=== PATIENT | male | born 1950 | race Caucasian/White ===

== ENCOUNTER 2018-01-06 19:32 | Emergency (ER) | payer BC, MEDICARE ==
--- NOTE | 2018-01-06 20:30 | ER Document Report ---
ED Medical Screen (RME) - General Chief Complaint: Probable Seizure Stated Complaint: FALL/HEAD INJURY Time Seen by Provider: 01/06/18 20:21 Mode of Arrival: Ambulatory Information source: Patient, Relative Notes: 67-year-old male with a history of hypertension, coronary artery disease presents after seizure-like activity just prior to arrival. Patient states that 3 days prior to arrival he had a syncopal episode while pumping gas. He states that he fell and the next thing he knew he was picking himself off the floor. At that time he sustained a head injury, facial abrasions but was not evaluated. Patient was out to dinner with his today when suddenly he slumped over his food and began displaying abnormal movements that lasted approximately 2 minutes. states that the patient was confused afterwards. He does not have a history of seizures. Patient does describe paresthesias prior to both events. He denies any chest pain, shortness of breath, diaphoresis. Patient does have history of cardiac stents with last placement in 2017. He is not on any blood thinning medications but takes aspirin daily. Have greeted and performed a rapid initial assessment of this patient a comprehensive ED assessment and evaluation of the patient, analysis of test results and completion of medical decision making will be conducted by an additional ED provider. HEENT: Large abrasion to the left side of his forehead. Periorbital ecchymosis. - HPI Onset: Just prior to arrival Onset/Duration: Sudden Exacerbated by: Denies Relieved by: Denies Similar symptoms previously: No Recently seen / treated by doctor: No - Related Data Smoking: Non-smoker Frequency of alcohol use: Occasional Drug Abuse: None Allergies/Adverse Reactions: cefaclor [From Ceclor] Allergy (Severe, Verified 01/06/18 20:28) Swelling of Throat
[2018-01-06 21:17] LABS: ABSOLUTE BASOPHILS # (AUTO) 0.1 10^3/uL (0.0-0.2); ABSOLUTE EOSINOPHILS # (AUTO) 0.8 10^3/uL (0.0-0.6); ABSOLUTE LYMPHOCYTES (AUTO) 2.2 10^3/uL (0.5-4.7); ABSOLUTE MONOCYTES (AUTO) 0.8 10^3/uL (0.1-1.4); ABSOLUTE NEUT (AUTO) 5.8 10^3/uL (1.7-8.2); BASOPHILS % (AUTO) 0.6 % (0-2); EOSINOPHILS % (AUTO) 8.2 % (0-6); HEMATOCRIT 41.4 % (37.9-51.0); HEMOGLOBIN 14.1 g/dL (13.5-17.0); LYMPHOCYTES % (AUTO) 22.8 % (13-45); MEAN CORPUSCULAR HEMOGLOBIN 32.4 pg (27.0-33.4); MEAN CORPUSCULAR VOLUME 95 fl (80-97); PLATELET COUNT 293 10^3/uL (150-450); RED BLOOD COUNT 4.34 10^6/uL (4.35-5.55); SEGMENTED NEUTROPHILS % (AUTO) 60.4 % (42-78); TOTAL CELLS COUNTED % (AUTO) 100 %; WHITE BLOOD COUNT 9.7 10^3/uL (4.0-10.5)
[2018-01-06 21:24] LABS: APPEARANCE,URINE CLEAR; BILIRUBIN,URINE NEGATIVE (NEGATIVE); COLOR,URINE STRAW; GLUCOSE, URINE NEGATIVE (NEGATIVE); KETONES,URINE NEGATIVE (NEGATIVE); LEUKOCYTE ESTERASE,URINE NEGATIVE (NEGATIVE); NITRITE,URINE NEGATIVE (NEGATIVE); PROTEIN,URINE NEGATIVE (NEGATIVE); URINE SPECIFIC GRAVITY 1.008; UROBILINOGEN,URINE NEGATIVE mg/dL (<2.0)
[2018-01-06 21:34] LABS: ALANINE AMINOTRANSFERASE 38 U/L (21-72); ALCOHOL 32 mg/dL (NONE DETECTED); ALKALINE PHOSPHATASE 82 U/L (38-126); ANION GAP 13 (5-19); ASPARTATE AMINO TRANSFERASE 26 U/L (17-59); BILIRUBIN,DIRECT 0.4 mg/dL (0.0-0.4); BILIRUBIN,TOTAL 0.4 mg/dL (0.2-1.3); BLOOD UREA NITROGEN 14 mg/dL (7-20); CALCIUM 10.1 mg/dL (8.4-10.2); CARBON DIOXIDE 18 mmol/L (22-30); CHLORIDE 110 mmol/L (98-107); CREATINE KINASE 218 U/L (55-170); GLUCOSE 86 mg/dL (75-110); POTASSIUM 4.4 mmol/L (3.6-5.0); SODIUM 141.1 mmol/L (137-145); TOTAL PROTEIN 6.2 g/dL (6.3-8.2)
[2018-01-06 21:43] LABS: URINE AMPHETAMINES SCREEN NEGATIVE; URINE BARBITURATES SCREEN NEGATIVE; URINE BENZODIAZEPINES SCREEN NEGATIVE; URINE COCAINE SCREEN NEGATIVE; URINE MARIJUANA (THC) SCREEN UNCONFIRMED POSITIVE; URINE METHADONE SCREEN NEGATIVE; URINE PHENCYCLIDINE SCREEN NEGATIVE
[2018-01-06 21:52] LABS: CREATINE KINASE MB 3.37 ng/mL (<4.55); TROPONIN I < 0.012 ng/mL
--- NOTE | 2018-01-06 22:05 | ER Document Report ---
ED General - General Chief Complaint: Probable Seizure Stated Complaint: FALL/HEAD INJURY Time Seen by Provider: 01/06/18 20:21 Mode of Arrival: Ambulatory Notes: The patient is a 67-year-old male, past medical history hypertension, CAD, presents with 2 minutes of generalized seizure-like activity just prior to arrival that his witnessed. He fell and the next thing he knew he was picking himself off the floor. He then was confused afterwards. Patient describes paresthesias in all his extremities just prior to both episodes. Patient had a syncopal episode 3 days ago where he fell in a sling and is being is off of the floor. He sustained a head injury and facial abrasions, but did not seek medical evaluation at that time. He denies chest pain, shortness of breath, diaphoresis, blood thinner use other than a baby aspirin, fevers or neck pain. - Related Data Allergies/Adverse Reactions: cefaclor [From Ceclor] Allergy (Severe, Verified 01/06/18 20:28) Swelling of Throat Past Medical History - General Information source: Patient, Relative - Social History Smoking Status: Never Smoker Chew tobacco use (# tins/day): No Frequency of alcohol use: Occasional Drug Abuse: None Family History: Reviewed & Not Pertinent Patient has suicidal ideation: No Patient has homicidal ideation: No - Past Medical History Cardiac Medical History: Reports: Hx Heart Attack, Hx Hypertension Renal/ Medical History: Denies: Hx Peritoneal Dialysis Past Surgical History: Reports: Hx Cardiac Catheterization, Hx Cholecystectomy, Hx Tonsillectomy, Hx Vascular Surgery Review of Systems - Review of Systems Notes: REVIEW OF SYSTEMS: CONSTITUTIONAL: -fevers, -chills EENT: -eye pain, -difficulty swallowing, -nasal congestion CARDIOVASCULAR: -chest pain, -syncope. RESPIRATORY: -cough, -SOB GASTROINTESTINAL: -abdominal pain, -nausea, -vomiting, -diarrhea GENITOURINARY: -dysuria, -hematuria MUSCULOSKELETAL: -back pain, -neck pain SKIN: +abrasions over left side of face HEMATOLOGIC: -easy bruising or bleeding. LYMPHATIC: -swollen, enlarged glands. NEUROLOGICAL: -altered mental status, -headache PSYCHIATRIC: -anxiety, -depression. ALL OTHER SYSTEMS REVIEWED AND NEGATIVE. Physical Exam - Vital signs Vitals: Temp Pulse Resp BP Pulse Ox 97.5 F 61 18 112/67 96 01/06/18 19:39 01/06/18 19:39 01/06/18 19:39 01/06/18 19:39 01/06/18 19:39 - Notes Notes: PHYSICAL EXAMINATION: GENERAL: Well-appearing, well-nourished and in no acute distress. HEAD: Abrasions over left forehead, normocephalic. EYES: Left periorbital ecchymosis, pupils equal round and reactive to light, extraocular movements intact, sclera anicteric, conjunctiva are normal. ENT: nares patent, oropharynx clear without exudates. Moist mucous membranes. NECK: Normal range of motion, supple without lymphadenopathy LUNGS: Breath sounds clear to auscultation bilaterally and equal. No wheezes rales or rhonchi. HEART: Regular rate and rhythm without murmurs ABDOMEN: Soft, nontender, normoactive bowel sounds. No guarding, no rebound. No masses appreciated. EXTREMITIES: Normal range of motion, no pitting or edema. No cyanosis. NEUROLOGICAL: Cranial nerves grossly intact. Normal speech, normal gait. Normal sensory and motor exams. PSYCH: Normal mood, normal affect. SKIN: Warm, Dry, normal turgor, no rashes or lesions noted. Course - Re-evaluation Re-evalutation: Patient appears well and back to baseline. His head CT and facial CT did not show any acute intracranial bleeds or skull fractures. Blood work is unremarkable. Since he had possibly 2 new onset seizure like activities, told him to follow-up with the neurologist. There is always a possibility that this may be a syncopal episode, but this is less likely based on the 's description of the generalized shaking for 2 minutes and postictal period. He is from [place] and will call his primary care doctor tomorrow for a referral. - Vital Signs Vital signs: Temp Pulse Resp BP Pulse Ox 97.5 F 61 18 112/67 96 01/06/18 19:39 01/06/18 19:39 01/06/18 19:39 01/06/18 19:39 01/06/18 19:39 - Laboratory Result Diagrams: 01/06/18 21:00 01/06/18 21:00 Laboratory results interpreted by me: 01/06/18 01/06/18 21:00 21:00 RBC 4.34 L Eosinophils % 8.2 H Absolute Eosinophils 0.8 H Chloride 110 H Carbon Dioxide 18 L Creatine Kinase 218 H Total Protein 6.2 L - Diagnostic Test Radiology reviewed: Image reviewed, Reports reviewed Radiology results interpreted by me: Head and Facial CT: LEFT PRE MAXILLARY SOFT TISSUE SWELLING WITHOUT FRACTURE. CHRONIC PARANASAL SINUS DISEASE. LIMITED BY MOTION. Discharge - Discharge Clinical Impression: Seizure-like activity Abrasion of face Qualifiers: Encounter type: initial encounter Qualified Code(s): S00.81XA - Abrasion of other part of head, initial encounter Condition: Stable Disposition: HOME, SELF-CARE Additional Instructions: Follow-up with the neurologist for further evaluation and treatment. Keep the wound clean with soap and water. Return to the ER if you have any further concerns. Seizure You have had a seizure. Seizure disorders (epilepsy) of one sort or another affect about one out of 50 people. The seizure occurs because of abnormal electrical activity in the brain. Seizures may be due to drugs and alcohol, strokes, brain injury, or infection. In the most common form of epilepsy, no cause can be found. You will require further evaluation to determine the cause of your seizure, and to determine whether anti-seizure medication is required. This follow-up testing is important, so please call us if you encounter problems with scheduling of tests or appointments. YOU SHOULD NOT DRIVE until released to do so by your physician. The law requires that seizures be reported to the [place] driver's license bureau--a seizure while driving could be catastrophic. Call the doctor if seizures recur, or if you develop new symptoms such as fever, severe headache, stiff neck, confusion or increasing sleepiness, weakness or numbness, or visual problems. Referrals: TRISHA PAGAN MD [NO LOCAL MD] - Follow up as needed
--- NOTE | 2018-01-06 22:11 | RADIOLOGY REPORT (SQ) ---
EXAM DESCRIPTION: CT HEAD WITHOUT COMPLETED DATE/TIME: 01/06/2018 10:00 pm REASON FOR STUDY: fall COMPARISON: None. TECHNIQUE: Axial images acquired through the brain without intravenous contrast. Images reviewed wi th bone, brain and subdural windows. Images stored on PACS. All CT scanners at this facility use dose modulation, iterative reconstruction, and/or weight based d osing when appropriate to reduce radiation dose to as low as reasonably achievable (ALARA). [facility]: Dose Right [facility]: CareDose [facility]: Dose Right [facility]: Teradose 4D [facility]: [employer] RADIATION DOSE: CT Rad equipment meets quality standard of care and radiation dose reduction techniq ues were employed. CTDIvol: 53.2 mGy. DLP: 1097 mGy-cm. mGy. LIMITATIONS: None. FINDINGS: VENTRICLES: Normal size and contour. CEREBRUM: No masses. No hemorrhage. No midline shift. No evidence for acute infarction. Normal gra y/white matter differentiation. No areas of low density in the white matter. CEREBELLUM: No masses. No hemorrhage. No alteration of density. No evidence for acute infarction. EXTRAAXIAL SPACES: No fluid collections. No masses. ORBITS AND GLOBE: No intra- or extraconal masses. Normal contour of globe without masses. CALVARIUM: No fracture. PARANASAL SINUSES: Mild generalized chronic sinus disease. SOFT TISSUES: No mass or hematoma. OTHER: No other significant finding. IMPRESSION: NO ACUTE INTRACRANIAL PROCESS. CHRONIC PARANASAL SINUS DISEASE. EVIDENCE OF ACUTE STROKE: NO. COMMENT: Quality ID # [id number]: Final reports with documentation of one or more dose reduction techniques (e.g., Automated exposure control, adjustment of the mA and/or kV according to patient size, use of iterative reconstruction technique) TECHNICAL DOCUMENTATION: JOB ID: [id number] [employer]- All Rights Reserved Reading location - IP/workstation name: [email or web address]
--- NOTE | 2018-01-06 22:13 | RADIOLOGY REPORT (SQ) ---
EXAM DESCRIPTION: CT FACIAL AREA WITHOUT COMPLETED DATE/TIME: 01/06/2018 10:00 pm REASON FOR STUDY: fall. injury to left cheek bone COMPARISON: None. TECHNIQUE: Noncontrasted images through the facial bones and orbits windowed for bone and soft tissu e. Additional coronal and sagittal reconstructed images reviewed. All images stored on PACS. All CT scanners at this facility use dose modulation, iterative reconstruction, and/or weight based d osing when appropriate to reduce radiation dose to as low as reasonably achievable (ALARA). [facility]: Dose Right [facility]: CareDose [facility]: Dose Right [facility]: Teradose 4D [facility]: [employer] RADIATION DOSE: CT Rad equipment meets quality standard of care and radiation dose reduction techniq ues were employed. CTDIvol: 30.4 mGy. DLP: 505 mGy-cm. mGy. LIMITATIONS: PATIENT MOTION. FINDINGS: FACIAL BONES: No fracture or bone lesion. ORBITS: Intact. No fracture. Symmetric intact globes and retroorbital soft tissues. PARANASAL SINUSES: Diffuse paranasal sinus mucosal thickening without air-fluid levels. SOFT TISSUES: Left pre maxillary soft tissue swelling. INFERIOR BRAIN: Limited view. No acute findings. OTHER: No other significant finding. IMPRESSION: LEFT PRE MAXILLARY SOFT TISSUE SWELLING WITHOUT FRACTURE. CHRONIC PARANASAL SINUS DISEASE. LIMITED BY MOTION. TECHNICAL DOCUMENTATION: JOB ID: [id number] Quality ID # [id number]: Final reports with documentation of one or more dose reduction techniques (e.g., Au tomated exposure control, adjustment of the mA and/or kV according to patient size, use of iterative reconstruction technique) 2010 [employer]- All Rights Reserved Reading location - IP/workstation name: [email or web address]
[2018-01-06] MEDS ORDERED: DIPH/PERTUSS(ACELL)/TETANUS VAC/PF 0.5 ML SYR (>=10YO) IM ONE (22:28)
--- NOTE | 2018-01-06 23:07 | EKG REPORT ---
SEVERITY:- ABNORMAL ECG - SINUS RHYTHM RBBB AND LAFB : Confirmed by: Nadege Sheridan 06-Jan-2018 20:06:29
[2018-01-06 23:09] VITALS: BP 107/69
== END 2018-01-06 23:09 | disposition home or self-care (01) ==
LOC: ER 19:32
DX: R41.0 Disorientation, unspecified (principal); R20.2 Paresthesia of skin; R29.818 Other symptoms and signs involving the nervous system; S00.12XA Contusion of left eyelid and periocular area, initial encounter; W19.XXXA Unspecified fall, initial encounter; J32.9 Chronic sinusitis, unspecified; I10 Essential (primary) hypertension; I25.10 Atherosclerotic heart disease of native coronary artery without angina pectoris; I25.2 Old myocardial infarction; Z79.82 Long term (current) use of aspirin; Z88.1 Allergy status to other antibiotic agents
CPT/HCPCS: 36415; 70450; 70486; 80053; 80307; 81001; 82550; 82553; 83735; 84484; 85025; 93005; 93010; 99285